=== PATIENT | female | born 2000 | race Two or more races ===

== ENCOUNTER 2025-03-21 23:57 | Emergency (ER) | payer OTHER ==
[~2025-03-21] VITALS: Ht 170.2 cm; Wt 65.3 kg
[2025-03-22] MEDS ORDERED: HYDROCODONE/APAP 5/325MG TABLET ONE (00:59)
[2025-03-22] MEDS: HYDROCODONE/APAP 5/325MG TABLET PO ONE (01:01)
[2025-03-22 01:47] LABS: PREGNANCY TEST URINE QUAL NEGATIVE (NEGATIVE)
[2025-03-22] MEDS ORDERED: HYDR-3972 PO (03:36)
[2025-03-22 04:55] VITALS: BP 133/94; TEMP 98.4; O2SAT 99
== END 2025-03-22 04:55 | disposition home or self-care (01) ==
LOC: ER 23:59
DX: S93.492A Sprain of other ligament of left ankle, initial encounter (principal); S93.491A Sprain of other ligament of right ankle, initial encounter; S01.81XA Laceration without foreign body of other part of head, initial encounter; M25.551 Pain in right hip; M25.552 Pain in left hip; M25.572 Pain in left ankle and joints of left foot; Z60.2 Problems related to living alone; V43.52XA Car driver injured in collision with other type car in traffic accident, initial encounter; Y93.89 Activity, other specified; Y92.488 Other paved roadways as the place of occurrence of the external cause; Y99.8 Other external cause status
CPT/HCPCS: 70450-TC; 70486-TC; 73502; 73590-TC; 73610-TC; 84703-TC